=== PATIENT | female | born 1950 | race Two or more races ===

== ENCOUNTER 2017-07-09 06:00 | Day surgery (SDC) | payer OTHER | END 2017-07-09 13:25 | disposition home or self-care (01) | LOC: AMB-ENDOS 06:00 | DX: D12.0 Benign neoplasm of cecum (principal); K57.32 Diverticulitis of large intestine without perforation or abscess without bleeding; K64.8 Other hemorrhoids ==

== ENCOUNTER 2020-01-19 10:52 | Day surgery (SDC) | payer OTHER | END 2020-01-19 15:35 | disposition home or self-care (01) | LOC: AMB-ENDOS 10:52 | PROVIDERS: ATTEND Surgery | DX: D12.2 Benign neoplasm of ascending colon (principal); K64.8 Other hemorrhoids; Z20.828 Contact with and (suspected) exposure to other viral communicable diseases ==

== ENCOUNTER 2023-01-29 08:18 | Inpatient (IN) | payer OTHER ==
[~2023-01-29] VITALS: Ht 152.4 cm; Wt 81.6 kg
[2023-01-29 09:46] LABS: HEMATOCRIT 40.1 % (36.0-45.00); HEMOGLOBIN 13.6 g/dL (12.0-15.00); MEAN CELL VOLUME 91.3 fL (80.00-100.00); MEAN CORPUSCULAR HEMOGLOBIN 30.8 pg (27.00-32.0); MEAN CORPUSCULAR HGB CONC 33.8 g/dl (32.0-36.0); PLATELET COUNT 232 K/uL (150-450); RED BLOOD COUNT 4.39 M/uL (4.00-6.00); RED CELL DISTRIBUTION WIDTH 13.9 % (11.5-14.5)
[2023-01-29 10:17] LABS: INR 1.01; PARTIAL THROMBOPLASTIN TIME 29.2 SECONDS (22.0-34.0); PROTHROMBIN TIME 10.6 SECONDS (9.0-11.5)
[2023-01-29 10:25] LABS: ALBUMIN 3.7 gm/dL (3.4-5.0); BILIRUBIN TOTAL 0.84 mg/dL (0.3-1.2); CALCIUM 9.4 mg/dL (8.5-10.1); CREATININE SERUM 0.62 mg/dL (0.55-1.02); GFR 94.35; GLOBULINA 2.9 G/DL (2.4-3.5); POTASSIUM 3.67 mEq/L (3.5-5.1); TOTAL PROTEIN 6.6 gm/dL (6.4-8.2)
[2023-01-29] MEDS ORDERED: DIOVAN320 MG PO (11:29)
[2023-01-29] MEDS ORDERED: TOPROL XL100 M1 PO (11:30)
[2023-01-29] MEDS ORDERED: HYDRALAZINE HCL50 MG PO (11:30)
[2023-01-29] MEDS ORDERED: HYDROCHLOROTHIA25 MG PO (11:31)
[2023-01-29] MEDS ORDERED: CHILDREN'S ASPI81 MG PO (11:31)
[2023-01-29] MEDS ORDERED: CRESTOR20 MG PO (11:31)
[2023-01-29 12:02] LABS: PH,URINE 5.5 (5.0-8.0); URINE APPEARANCE Clear; URINE BILIRRUBIN Negative (NEGATIVE); URINE BLOOD Negative; URINE COLOR Yellow; URINE GLUCOSE Negative (NEGATIVE); URINE LEUKOCYTE Small; URINE NITRATE Negative; URINE PROTEIN Negative (NEGATIVE)
[2023-01-29 12:07] LABS: URINE BACTERIA 1915.1 uL (0.0-1933); URINE EPITHELIAL CELLS 75.7 uL (0.0-38.8); URINE RBC 17.1 uL (0.0-20.8); URINE WBC 55.8 uL (0.0-23.2)
[2023-02-21 16:39] LABS: HEMATOCRIT 40.8 % (36.0-45.00); HEMOGLOBIN 13.6 g/dL (12.0-15.00); MEAN CELL VOLUME 90.6 fL (80.00-100.00); MEAN CORPUSCULAR HEMOGLOBIN 30.2 pg (27.00-32.0); MEAN CORPUSCULAR HGB CONC 33.4 g/dl (32.0-36.0); PLATELET COUNT 253 K/uL (150-450); RED CELL DISTRIBUTION WIDTH 14.5 % (11.5-14.5)
[2023-02-21 17:14] LABS: ALBUMIN 3.4 gm/dL (3.4-5.0); CALCIUM 8.7 mg/dL (8.5-10.1); CREATININE SERUM 0.73 mg/dL (0.55-1.02); GFR 78.15; PHOSPHOROUS 3.2 mg/dL (2.5-4.9)
[2023-02-21 17:21] LABS: POTASSIUM 2.92 mEq/L (3.5-5.1)
[2023-02-22 06:16] LABS: HEMATOCRIT 39.6 % (36.0-45.00); HEMOGLOBIN 13.2 g/dL (12.0-15.00); MEAN CELL VOLUME 89.6 fL (80.00-100.00); MEAN CORPUSCULAR HEMOGLOBIN 29.8 pg (27.00-32.0); MEAN CORPUSCULAR HGB CONC 33.3 g/dl (32.0-36.0); PLATELET COUNT 228 K/uL (150-450); RED BLOOD COUNT 4.42 M/uL (4.00-6.00); RED CELL DISTRIBUTION WIDTH 14.7 % (11.5-14.5)
[2023-02-22 06:47] LABS: ALBUMIN 3.2 gm/dL (3.4-5.0); CALCIUM 8.5 mg/dL (8.5-10.1); CREATININE SERUM 0.64 mg/dL (0.55-1.02); GFR 90.96; MAGNESIUM 1.8 mg/dL (1.8-2.4); PHOSPHOROUS 2.9 mg/dL (2.5-4.9); POTASSIUM 4.31 mEq/L (3.5-5.1)
[2023-02-24] MEDS ORDERED: ACETAMINOPHEN500 M2 PO (08:40)
[2023-02-24] MEDS ORDERED: NEURONTIN300 MG PO (08:40)
== END 2023-02-24 10:25 | disposition home or self-care (01) | DRG 331 ==
LOC: EDSTATUS 09:00 → ADM 09:00 → SURG 02-21 08:30 → O/R 02-21 11:07 → SURH 02-21 16:15
PROVIDERS: ADMIT Surgery; ATTEND Surgery
PROC: 07BB4ZZ Excision of Mesenteric Lymphatic, Percutaneous Endoscopic Approach (ICD-10-PCS; 2023-02-21)
PROC: 0DTF4ZZ Resection of Right Large Intestine, Percutaneous Endoscopic Approach (ICD-10-PCS; principal; 2023-02-21 08:30)
DX: D12.2 Benign neoplasm of ascending colon (principal); R59.0 Localized enlarged lymph nodes; I10 Essential (primary) hypertension; E78.5 Hyperlipidemia, unspecified